=== PATIENT | male | born 1955 | race Caucasian/White ===

== ENCOUNTER 2017-06-02 12:15 | Emergency (ER) | payer MEDICARE ==
[2017-06-02 13:21] VITALS: BP 146/80
[2017-06-02] MEDS ORDERED: Lidocaine 1% MPF* 2 ML VIAL INJ ONE (13:54)
--- NOTE | 2017-06-02 14:03 | UC ---
Knee Pain HPI - HPI Summary HPI Summary: piece of wood in right knee-happened while he was cleaning up from around a pine tree about one hour [employer] - History of Current Complaint Chief Complaint: UCGeneralIllness Stated Complaint: RIGHT KNEE SKIN COMPLAINT Time Seen by Provider: 06/02/17 13:30 Hx Obtained From: Patient Onset/Duration: Sudden Onset, Lasting Hours - 1 Severity Initially: Mild Severity Currently: Mild Location Of Injury: medial to right patella Character: Throbbing Aggravating Factor(s): Movement Alleviating Factor(s): Nothing Associated Signs And Symptoms: Positive: Negative Able to Bear Weight: Yes - Allergies/Home Medications Allergies/Adverse Reactions: Allergies Allergy/AdvReac Type Severity Reaction Status Date / Time Oxycodone Allergy Itching Verified 06/02/17 13:12 Home Medications: Home Medications Cholecalciferol [Vitamin D] 2,000 unit PO BEDTIME 06/02/17 [History Confirmed ] PMH/Surg Hx/FS Hx/Imm Hx Previously Healthy: No - chronic pain Endocrine History: Dyslipidemia Cardiovascular History: Hypertension GI/ History: Gastroesophageal Reflux - Surgical History Surgical History: Yes Surgery Procedure, Year, and Place: spinal surgery x5, last surgery was 2013: back hardware removal 11/14/14several cyst excisions to backLeft knee menicus repair 2013R ANKLE SURGERY 1994R WRIST SURGERY-- DORSAL COLUMN STIMULATOR TRIAL- NOW REMOVED, SCREWS IN BACK, Permanent Dorsal Column stimulator 06/2015 Left Shoulder repair 08/2016 - Family History Known Family History: Positive: None - Social History Occupation: Unemployed Lives: With Family Alcohol Use: None Substance Use Type: None Substance Use Comment - Amount & Last Used: morphine Smoking Status (MU): Former Smoker Type: Cigarettes Amount Used/How Often: 2 PPD X 43 YEARS Length of Time of Smoking/Using Tobacco: 40 YRS Have You Smoked in the Last Year: No When Did the Patient Quit Smoking/Using Tobacco: 2005 - Immunization History Most Recent Tetanus Shot: 3 years ago Review of Systems Constitutional: Negative Skin: Negative, Other - fb meial side of right superior patella Eyes: Negative ENT: Negative Respiratory: Negative Cardiovascular: Negative Gastrointestinal: Negative Genitourinary: Negative Motor: Negative Neurovascular: Negative Musculoskeletal: Negative Neurological: Negative Psychological: Negative Is Patient Immunocompromised?: No All Other Systems Reviewed And Are Negative: Yes Physical Exam Triage Information Reviewed: Yes Appearance: Well-Appearing, No Pain Distress, Well-Nourished Vital Signs: Initial Vital Signs Temp 98.3 F 06/02/17 13:16 Pulse 79 06/02/17 13:16 Resp 16 06/02/17 13:16 BP 146/80 06/02/17 13:16 Pulse Ox 98 06/02/17 13:16 Vital Signs Reviewed: Yes Eye Exam: Normal Eyes: Positive: Conjunctiva Clear ENT Exam: Normal ENT: Positive: Normal ENT inspection, Hearing grossly normal. Negative: Nasal congestion, Nasal drainage, Trismus, Muffled/hoarse voice Dental Exam: Normal Neck exam: Normal Neck: Positive: Supple, Nontender Respiratory Exam: Normal Respiratory: Positive: Chest non-tender, Lungs clear, Normal breath sounds, No respiratory distress, No accessory muscle use Cardiovascular Exam: Normal Cardiovascular: Positive: RRR, No Murmur, Pulses Normal, Brisk Capillary Refill Musculoskeletal Exam: Normal Musculoskeletal: Positive: Strength Intact, ROM Intact, No Edema Neurological Exam: Normal Neurological: Positive: Alert, Muscle Tone Normal Psychological Exam: Normal Skin: Positive: Other - fb visable Diagnostics - Radiology No standard instances Xray Interpretation: No Acute Changes Radiology Interpretation Completed By: ED Physician Re-Evaluation - Re-Evaluation First Eval Change: Unchanged - lidocaine 3 cc injected, small 4 mm katie made in skin, fb both visable and able to be felt with 18 guage needle and splinter forcepts-but unable to grasp object- steri strip applied-call to ortho for consult
--- NOTE | 2017-06-02 14:35 | RAD ---
INDICATION: Foreign body COMPARISON: None TECHNIQUE: AP and lateral views were obtained. FINDINGS: There is minor medial joint space narrowing with chondrocalcinosis. There are no additional significant osseous or joint space findings. There is no radiopaque foreign body. IMPRESSION: NO RADIOPAQUE FOREIGN BODY.
== END 2017-06-02 15:08 | disposition home or self-care (01) ==
LOC: UCCORT 12:15
DX: S80.251A Superficial foreign body, right knee, initial encounter (principal); X58.XXXA Exposure to other specified factors, initial encounter; Y92.9 Unspecified place or not applicable; I10 Essential (primary) hypertension; K21.9 Gastro-esophageal reflux disease without esophagitis; Z87.891 Personal history of nicotine dependence
CPT/HCPCS: 99211; G0463